=== PATIENT | male | born 1975 | race Caucasian/White ===

== ENCOUNTER 2016-04-22 13:31 | Emergency (ER) | payer OTHER ==
[2016-04-22 13:56] VITALS: TEMP 98.2
[2016-04-22] MEDS ORDERED: RX INFO: IV CONTRAST WAS GIVEN 1 EACH MISC MISCELLANE PRN (14:30)
[2016-04-22] MEDS ORDERED: HYDROmorphone 1 MG/ML 1 ML SYRINGE IVP STA (14:30)
[2016-04-22] MEDS ORDERED: SODIUM CHLORIDE 0.9% 1,000 ML IV STA ×2 (14:30)
[2016-04-22] MEDS ORDERED: ONDANSETRON 4 MG/2 ML VIAL IVP STA (14:30)
[2016-04-22] MEDS ORDERED: FAMOTIDINE 20 MG/2 ML VIAL IV STA (14:31)
--- NOTE | 2016-04-22 14:44 | ED ---
General Adult HPI - General Chief complaint: Abdominal Pain Stated complaint: Nausea/Vomiting Time Seen by Provider: 04/22/16 14:23 Source: patient, RN notes reviewed Mode of arrival: ambulatory Limitations: no limitations - History of Present Illness Initial comments: . Patient is a pleasant 40-year-old male presenting to the emergency Department with abdominal discomfort. Patient had hernia surgery done right around [place] time. Patient for the past week has had abdominal discomfort and nausea with emesis. Limited oral intake. No fevers. Discomfort is mostly near the umbilical hernia as well as somewhat left lower quadrant. Patient has not yet followed up with his surgeon. - Related Data Home Medications Medication Instructions Recorded Confirmed Albuterol Inhaler [Ventolin Hfa 2 puff INHALATION RT-QID PRN 03/06/16 04/22/16 Inhaler] Hydrochlorothiazide [Hydrodiuril] 50 mg PO HS 03/06/16 04/22/16 Lisinopril [Zestril] 20 mg PO HS 03/06/16 04/22/16 Sertraline [Zoloft] 50 mg PO HS 03/06/16 04/22/16 Previous Rx's Medication Instructions Recorded Cephalexin [Keflex] 500 mg PO Q8HR #30 cap 04/22/16 Ondansetron Odt [Zofran Odt] 4 mg PO Q8HR PRN #10 tab 04/22/16 Allergies Allergy/AdvReac Type Severity Reaction Status Date / Time orange juice Allergy Anaphylaxis Verified 04/22/16 14:29 Review of Systems ROS Statement: Those systems with pertinent positive or pertinent negative responses have been documented in the HPI. ROS Other: All systems not noted in ROS Statement are negative. 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 , back pain History of Any Multi-Drug Resistant Organisms: None Reported Past Surgical History: Adenoidectomy, Hernia Repair, Orthopedic Surgery Additional Past Surgical History / Comment(s): 3 lt ear surgeries, nasal reconstruction Lt side of face, Lt foot surgery broken bone Past Anesthesia/Blood Transfusion Reactions: Previous Problems w/ Anesthesia Additional Past Anesthesia/Blood Transfusion Reaction / Comment(s): delay in coming out of anesthesia Past Psychological History: Anxiety, Depression Smoking Status: Never smoker Past Alcohol Use History: Occasional Past Drug Use History: None Reported - Past Family History Mother Family Medical History: Diabetes Mellitus, Hypertension Additional Family Medical History / Comment(s): one kidney removed Father History Unknown: Yes General Exam Limitations: no limitations General appearance: alert, in no apparent distress, obese Head exam: Present: atraumatic Eye exam: Present: normal appearance ENT exam: Present: normal oropharynx Neck exam: Present: normal inspection Respiratory exam: Present: normal lung sounds bilaterally Cardiovascular Exam: Present: regular rate, normal rhythm GI/Abdominal exam: Present: soft, tenderness (Mild to moderate tenderness in the periumbilical and left lower quadrant). Absent: distended, guarding, rebound, rigid Extremities exam: Present: normal inspection. Absent: pedal edema, calf tenderness Neurological exam: Present: alert Psychiatric exam: Present: normal affect, normal mood Skin exam: Absent: rash Course Vital Signs 04/22/16 13:53 Temperature 98.2 F Pulse Rate 78 Respiratory 18 Rate Blood Pressure 143/88 O2 Sat by Pulse 97 Oximetry Medical Decision Making - Medical Decision Making Patient reexamined and requesting discharge. Case was discussed in detail with Dr. gates who did come evaluate the patient in the emergency department and recommends discharge with antibiotics. - Lab Data Result diagrams: 04/22/16 15:45 04/22/16 15:45 Lab Results 04/22/16 04/22/16 04/22/16 Range/Units 15:45 15:45 15:45 WBC 9.8 (3.8-10.6) k/uL RBC 5.21 (4.30-5.90) m/uL Hgb 14.9 (13.0-17.5) gm/dL Hct 46.8 (39.0-53.0) % MCV 89.8 (80.0-100.0) fL MCH 28.5 (25.0-35.0) pg MCHC 31.7 (31.0-37.0) g/dL RDW 13.8 (11.5-15.5) % Plt Count 226 (150-450) k/uL Neutrophils % 79 % Lymphocytes % 13 % Monocytes % 5 % Eosinophils % 1 % Basophils % 0 % Neutrophils # 7.7 (1.3-7.7) k/uL Lymphocytes # 1.3 (1.0-4.8) k/uL Monocytes # 0.5 (0-1.0) k/uL Eosinophils # 0.1 (0-0.7) k/uL Basophils # 0.0 (0-0.2) k/uL PT 11.2 (9.0-12.0) sec INR 1.1 (<1.1) APTT 25.2 (22.0-30.0) sec Sodium 143 (137-145) mmol/L Potassium 4.4 (3.5-5.1) mmol/L Chloride 106 (98-107) mmol/L Carbon Dioxide 24 (22-30) mmol/L Anion Gap 13 mmol/L BUN 17 (9-20) mg/dL Creatinine 0.90 (0.66-1.25) mg/dL Est GFR (MDRD) Af Amer >60 (>60 ml/min/1.73 sqM) Est GFR (MDRD) Non-Af >60 (>60 ml/min/1.73 sqM) Glucose 87 (74-99) mg/dL Calcium 9.5 (8.4-10.2) mg/dL Total Bilirubin 0.7 (0.2-1.3) mg/dL AST 25 (17-59) U/L ALT 54 (21-72) U/L Alkaline Phosphatase 150 H (38-126) U/L Total Protein 8.0 (6.3-8.2) g/dL Albumin 4.5 (3.5-5.0) g/dL Amylase 43 (30-110) U/L Lipase 67 (23-300) U/L Urine Color Urine Appearance (Clear) Urine pH (5.0-8.0) Ur Specific [place] (1.001-1.035) Urine Protein (Negative) Urine Glucose (UA) (Negative) Urine Ketones (Negative) Urine Blood (Negative) Urine Nitrate (Negative) Urine Bilirubin (Negative) Urine Urobilinogen (<2.0) mg/dL Ur Leukocyte Esterase (Negative) 04/22/16 Range/Units 16:20 WBC (3.8-10.6) k/uL RBC (4.30-5.90) m/uL Hgb (13.0-17.5) gm/dL Hct (39.0-53.0) % MCV (80.0-100.0) fL MCH (25.0-35.0) pg MCHC (31.0-37.0) g/dL RDW (11.5-15.5) % Plt Count (150-450) k/uL Neutrophils % % Lymphocytes % % Monocytes % % Eosinophils % % Basophils % % Neutrophils # (1.3-7.7) k/uL Lymphocytes # (1.0-4.8) k/uL Monocytes # (0-1.0) k/uL Eosinophils # (0-0.7) k/uL Basophils # (0-0.2) k/uL PT (9.0-12.0) sec INR (<1.1) APTT (22.0-30.0) sec Sodium (137-145) mmol/L Potassium (3.5-5.1) mmol/L Chloride (98-107) mmol/L Carbon Dioxide (22-30) mmol/L Anion Gap mmol/L BUN (9-20) mg/dL Creatinine (0.66-1.25) mg/dL Est GFR (MDRD) Af Amer (>60 ml/min/1.73 sqM) Est GFR (MDRD) Non-Af (>60 ml/min/1.73 sqM) Glucose (74-99) mg/dL Calcium (8.4-10.2) mg/dL Total Bilirubin (0.2-1.3) mg/dL AST (17-59) U/L ALT (21-72) U/L Alkaline Phosphatase (38-126) U/L Total Protein (6.3-8.2) g/dL Albumin (3.5-5.0) g/dL Amylase (30-110) U/L Lipase (23-300) U/L Urine Color Yellow Urine Appearance Clear (Clear) Urine pH 5.5 (5.0-8.0) Ur Specific [place] 1.046 H (1.001-1.035) Urine Protein Negative (Negative) Urine Glucose (UA) Negative (Negative) Urine Ketones Negative (Negative) Urine Blood Negative (Negative) Urine Nitrate Negative (Negative) Urine Bilirubin Negative (Negative) Urine Urobilinogen <2.0 (<2.0) mg/dL Ur Leukocyte Esterase Negative (Negative) - Radiology Data Radiology results: image reviewed (Computed tomography scan of the abdomen and pelvis shows fluid collection in the umbilical region. There is also some inflammation in this area.) Disposition Clinical Impression: Abdominal pain Disposition: HOME SELF-CARE Condition: Stable Instructions: Abdominal Pain (ED) Additional Instructions: Please call Dr. Levin tomorrow for close follow-up in the next day or 2. Return for increased abdominal pain, not tolerating fluids, fevers, redness, worsening symptoms or other concerns. Prescriptions: Cephalexin [Keflex] 500 mg PO Q8HR #30 cap Ondansetron Odt [Zofran Odt] 4 mg PO Q8HR PRN #10 tab PRN Reason: Nausea Referrals: Pamela Leos MD [Primary Care Provider] - 1-2 days Jesenia Rubin MD [STAFF PHYSICIAN] - 1-2 days
[2016-04-22 16:08] LABS: Basophils % (A) 0 %; CH 28.8; CHCM 32.2; Eosinophils # (A) 0.1 k/uL (0-0.7); Eosinophils % (A) 1 %; HCT 46.8 % (39.0-53.0); HDW 2.66; HGB 14.9 gm/dL (13.0-17.5); Luc # (Auto) 0.08; Luc % (Auto) 1; Lymphocytes # (A) 1.3 k/uL (1.0-4.8); Lymphocytes % (A) 13 %; MCH 28.5 pg (25.0-35.0); MCHC 31.7 g/dL (31.0-37.0); MCV 89.8 fL (80.0-100.0); Mean Platelet Volume 7.6; Monocytes # (A) 0.5 k/uL (0-1.0); Monocytes % (A) 5 %; Neutrophils # (A) 7.7 k/uL (1.3-7.7); Neutrophils % (A) 79 %; RBC 5.21 m/uL (4.30-5.90); RDW 13.8 % (11.5-15.5); WBC 9.8 k/uL (3.8-10.6); WBC (Perox) 9.71
[2016-04-22 16:17] LABS: ALT 54 U/L (21-72); AST 25 U/L (17-59); Alkaline Phosphatase 150 U/L (38-126); Amylase 43 U/L (30-110); Anion Gap 13 mmol/L; Blood Urea Nitrogen 17 mg/dL (9-20); Calcium 9.5 mg/dL (8.4-10.2); Carbon Dioxide 24 mmol/L (22-30); Chloride 106 mmol/L (98-107); Glucose 87 mg/dL (74-99); Non-African American GFR(MDRD) >60 (>60 ml/min/1.73 sqM); Potassium 4.4 mmol/L (3.5-5.1); Sodium 143 mmol/L (137-145); Total Bilirubin 0.7 mg/dL (0.2-1.3)
[2016-04-22 16:19] LABS: INR 1.1 (<1.1); Partial Thromboplastin Time 25.2 sec (22.0-30.0); Prothrombin Time 11.2 sec (9.0-12.0)
[2016-04-22 16:33] LABS: Appearance,Urine Clear (Clear); Bilirubin,Urine Negative (Negative); Glucose,Urine (UA) Negative (Negative); Ketones,Urine Negative (Negative); Leukocyte Esterase,Urine Negative (Negative); Nitrite,Urine Negative (Negative); PH, Urine 5.5 (5.0-8.0); Protein,Urine Negative (Negative); UA Billing (MACRO vs. MICRO) CHEM; Urobilinogen,Urine <2.0 mg/dL (<2.0)
[2016-04-22 16:38] LABS: Specific Gravity,Urine 1.046 (1.001-1.035)
--- NOTE | 2016-04-22 17:00 | CT ---
EXAMINATION TYPE: CT abdomen pelvis w con DATE OF EXAM: 04/22/2016 4:14 PM COMPARISON: NONE HISTORY: 40-year-old male with abdominal pain with nausea and vomiting. TECHNIQUE: Contiguous axial scanning of the abdomen and pelvis following administration of 100 ml Omn ipaque 300 IV contrast. Delayed images through the kidneys and coronal/sagittal reconstructions perf ormed. CT DLP: 4195.60 mGycm Automated exposure control for dose reduction was used. FINDINGS: Heart is normal size without pericardial effusion. Lung bases are clear without pleural effusion. Subcentimeter hypodensity anterior right hepatic lobe axial image [address] characteri zation. Slightly larger 1.5 cm hypodense lesion within the caudate lobe axial image 12 does not appea r to enhance and likely represents a cyst. Portal venous system is patent. No biliary ductal dilatati on. Gallbladder, adrenal glands, kidneys, and pancreas appear within normal limits. Spleen is enlarged measuring 15.6 cm craniocaudal on coronal series. No dilated small bowel, free fluid, or free air. Normal appendix. Mild scattered stool without ayesha lonic inflammatory change seen. No mesenteric or retroperitoneal lymphadenopathy. Bladder is partially distended. Rectum appears normal. No abnormal fluid collection in the pelvis. No nspecific prominent 8 mm external iliac chain lymph nodes. Some bilateral inguinal chain lymph nodes are also borderline enlarged at 1.4 cm. These are probably chronic postinflammatory. There is to be an umbilical hernia which measures 4.1 cm wide by 4.5 cm craniocaudal by 6.8 cm long. The hernia sac is filled with fluid and there is inflammatory fluid and stranding extending into the fat within the intra-abdominal cavity. Bones: There is slight superior acetabular retroversion on both sides which can be seen in the settin g of femoral acetabular impingement syndrome and can be correlated with physical exam testing. No oss eous destructive process. IMPRESSION: 6.8 X 4.5 CM FLUID COLLECTION AT THE UMBILICUS WITHIN THE SUBCUTANEOUS FAT WITH INFLAMMATORY EDEMA AN D FAT STRANDING EXTENDING INTO THE FAT BEHIND THE ABDOMINAL WALL MUSCULATURE. UNCERTAIN IF THIS REPRE SENTS AN ABSCESS AT THE UMBILICUS, STRANGULATED AND INFLAMED UMBILICAL HERNIA, OR A COMPLICATED UMBIL ICAL-URACHAL SINUS. CLINICAL CORRELATION RECOMMENDED.
[2016-04-22 18:12] VITALS: BP 160/83; PULSE 80; RESP 16
--- NOTE | 2016-04-22 19:07 | P.GSCN ---
History of Present Illness Consult date: 04/22/16 Reason for Consult: Abdominal discomfort History of present illness: Patient is 40-year-old male who presents with abdominal discomfort. The patient has had a hernia repair done approximately 2 weeks ago from that standpoint he is doing very well. He says he is having some nausea but no other complaints. Pain is moderate to severe at the site of the hernia repair. There is no fever no chills no discharge. Is otherwise ambulating well. Review of Systems - Constitutional Reports anorexia, Denies fever, Denies weight loss - Gastrointestinal Gastrointestinal Comment(s): Patient have some nausea and is unable to tolerate food at this time. He is some discomfort from his abdomen. 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 , back pain History of Any Multi-Drug Resistant Organisms: None Reported Past Surgical History: Adenoidectomy, Hernia Repair, Orthopedic Surgery Additional Past Surgical History / Comment(s): 3 lt ear surgeries, nasal reconstruction Lt side of face, Lt foot surgery broken bone Past Anesthesia/Blood Transfusion Reactions: Previous Problems w/ Anesthesia Additional Past Anesthesia/Blood Transfusion Reaction / Comm: delay in coming out of anesthesia Past Psychological History: Anxiety, Depression Smoking Status: Never smoker Past Alcohol Use History: Occasional Past Drug Use History: None Reported - Past Family History Mother Family Medical History: Diabetes Mellitus, Hypertension Additional Family Medical History / Comment(s): one kidney removed Father History Unknown: Yes Medications and Allergies Home Medications Medication Instructions Recorded Confirmed Type Albuterol Inhaler [Ventolin Hfa 2 puff INHALATION RT-QID PRN 03/06/16 04/22/16 History Inhaler] Hydrochlorothiazide [Hydrodiuril] 50 mg PO HS 03/06/16 04/22/16 History Lisinopril [Zestril] 20 mg PO HS 03/06/16 04/22/16 History Sertraline [Zoloft] 50 mg PO HS 03/06/16 04/22/16 History Allergies Allergy/AdvReac Type Severity Reaction Status Date / Time orange juice Allergy Anaphylaxis Verified 04/22/16 14:29 Surgical - Exam Vital Signs Temp Pulse Resp BP Pulse Ox 98.2 F 78 18 143/88 97 04/22/16 13:53 04/22/16 13:53 04/22/16 13:53 04/22/16 13:53 04/22/16 13:53 - General no distress, obese - Eyes PERRL, normal ocular movement - ENT normal pinna, normal nares - Respiratory normal expansion, normal respiratory effort - Cardiovascular Rhythm: regular - Abdomen Patient's cystlike are well healed. On the patient has some tenderness around the bellybutton site. There is no erythema no discharge. There is no warmth. Most likely the fluctuations from the seroma. Abdomen: soft Results - Labs 04/22/16 15:45 04/22/16 15:45 Abnormal Lab Results - Last 24 Hours (Table) 04/22/16 04/22/16 Range/Units 15:45 16:20 Alkaline Phosphatase 150 H (38-126) U/L Ur Specific [place] 1.046 H (1.001-1.035) Diabetes panel 04/22/16 Range/Units 15:45 Sodium 143 (137-145) mmol/L Potassium 4.4 (3.5-5.1) mmol/L Chloride 106 (98-107) mmol/L Carbon Dioxide 24 (22-30) mmol/L BUN 17 (9-20) mg/dL Creatinine 0.90 (0.66-1.25) mg/dL Glucose 87 (74-99) mg/dL Calcium 9.5 (8.4-10.2) mg/dL AST 25 (17-59) U/L ALT 54 (21-72) U/L Alkaline Phosphatase 150 H (38-126) U/L Total Protein 8.0 (6.3-8.2) g/dL Albumin 4.5 (3.5-5.0) g/dL Calcium panel 04/22/16 Range/Units 15:45 Calcium 9.5 (8.4-10.2) mg/dL Albumin 4.5 (3.5-5.0) g/dL Pituitary panel 04/22/16 Range/Units 15:45 Sodium 143 (137-145) mmol/L Potassium 4.4 (3.5-5.1) mmol/L Chloride 106 (98-107) mmol/L Carbon Dioxide 24 (22-30) mmol/L BUN 17 (9-20) mg/dL Creatinine 0.90 (0.66-1.25) mg/dL Glucose 87 (74-99) mg/dL Calcium 9.5 (8.4-10.2) mg/dL Adrenal panel 04/22/16 Range/Units 15:45 Sodium 143 (137-145) mmol/L Potassium 4.4 (3.5-5.1) mmol/L Chloride 106 (98-107) mmol/L Carbon Dioxide 24 (22-30) mmol/L BUN 17 (9-20) mg/dL Creatinine 0.90 (0.66-1.25) mg/dL Glucose 87 (74-99) mg/dL Calcium 9.5 (8.4-10.2) mg/dL Total Bilirubin 0.7 (0.2-1.3) mg/dL AST 25 (17-59) U/L ALT 54 (21-72) U/L Alkaline Phosphatase 150 H (38-126) U/L Total Protein 8.0 (6.3-8.2) g/dL Albumin 4.5 (3.5-5.0) g/dL - Imaging Additional studies: Computed tomography scan was reviewed by me. The mesh is intact. This fluid over the mesh extending the subcutaneous plane. This probably a small seroma. Assessment and Plan (1) Abdominal pain Narrative/Plan: The patient presents with his small abdominal pain. The pain is probably related to the fluid and subcutis tissue which is postoperative in nature. At this time does not look actively infected. His white count is within normal limits. There is no left shift. Fever no chills. And recommendations and the patient home and follow up as an outpatient with antibiotic coverage as prophylaxis. The computed tomography scan report was reviewed as stated this is expected postsurgical changes. Status: Acute
== END 2016-04-22 18:11 | disposition home or self-care (01) ==
LOC: EC 13:31
DX: R10.33 Periumbilical pain (principal); R10.32 Left lower quadrant pain; R11.2 Nausea with vomiting, unspecified; Z98.890 Other specified postprocedural states; I10 Essential (primary) hypertension; F32.9 Major depressive disorder, single episode, unspecified; F41.9 Anxiety disorder, unspecified; Z79.899 Other long term (current) drug therapy; R63.0 Anorexia
CPT/HCPCS: 99284; 96374; 96375 ×2; 96361 ×2; 36415; 80053; 82150; 83690; 85025; 85610; 85730; 81003; 74177; J2405; J1170; Q9967

== ENCOUNTER 2018-03-15 17:31 | Observation (INO) | payer OTHER ==
[2018-03-15] MEDS ORDERED: NITROGLYCERIN OINT 1 INCH/GM PACKET TOPICAL STA (17:56)
[2018-03-15] MEDS ORDERED: ASPIRIN 81 MG PO STA (17:56)
[2018-03-15] MEDS ORDERED: NITROGLYCERIN SL TABS 0.4 MG TAB SUBLINGUAL STA ×2 (17:56)
--- NOTE | 2018-03-15 17:59 | ED ---
General Adult HPI - General Chief complaint: Chest Pain Stated complaint: Chest pain Time Seen by Provider: 03/15/18 17:35 Source: patient, RN notes reviewed Mode of arrival: ambulatory Limitations: no limitations - History of Present Illness Initial comments: This is a 42-year-old male who presents emergency Department with a past history of morbid obesity hypertension high cholesterol and congestive heart failure. Patient states about 45 minutes prior to arrival he started having chest pain over the pain radiated down his arm he describes the pain is pressure. Patient states he also was very short of breath. Patient denies any diaphoretic episodes. Patient denies any nausea. Patient denies any recent fever chills or cough. Patient denies any smoking history. Patient denies any injury or trauma. Patient denies abdominal pain patient denies any vomiting or diarrhea. Patient denies any lightheadedness dizziness or near syncopal episode. - Related Data Home Medications Medication Instructions Recorded Confirmed Aspirin EC [Ecotrin Low Dose] 81 mg PO DAILY 03/15/18 03/15/18 Atorvastatin [Lipitor] 40 mg PO HS 03/15/18 03/15/18 Clopidogrel [Plavix] 75 mg PO DAILY 03/15/18 03/15/18 Furosemide [Lasix] 20 mg PO BID 03/15/18 03/15/18 Furosemide [Lasix] 40 mg PO BID 03/15/18 03/15/18 Lisinopril 40 mg PO DAILY 03/15/18 03/15/18 Metoprolol Succinate (ER) [Toprol 100 mg PO DAILY 03/15/18 03/15/18 Xl] Omeprazole 20 mg PO BID 03/15/18 03/15/18 Potassium Chloride ER [K-Dur 20] 20 meq PO DAILY 03/15/18 03/15/18 Pregabalin [Lyrica] 75 mg PO DAILY 03/15/18 03/15/18 Topiramate [Topamax] 100 mg PO HS 03/15/18 03/15/18 Venlafaxine HCl ER [Effexor Xr] 150 mg PO DAILY 03/15/18 03/15/18 hydrALAZINE HCL 37.5 mg PO BID 03/15/18 03/15/18 Allergies Allergy/AdvReac Type Severity Reaction Status Date / Time orange juice Allergy Anaphylaxis Verified 03/15/18 18:20 Review of Systems ROS Statement: Those systems with pertinent positive or pertinent negative responses have been documented in the HPI. ROS Other: All systems not noted in ROS Statement are negative. Past Medical History Past Medical History: Chest Pain / Angina, Hypertension Additional Past Medical History / Comment(s): tubes in ears, cyst on hypothalmus , back pain History of Any Multi-Drug Resistant Organisms: None Reported Past Surgical History: Adenoidectomy, Hernia Repair, Orthopedic Surgery Additional Past Surgical History / Comment(s): 3 lt ear surgeries, nasal reconstruction Lt side of face, Lt foot surgery broken bone Past Anesthesia/Blood Transfusion Reactions: Previous Problems w/ Anesthesia Additional Past Anesthesia/Blood Transfusion Reaction / Comment(s): delay in coming out of anesthesia Past Psychological History: Anxiety, Depression Smoking Status: Never smoker Past Alcohol Use History: Occasional Past Drug Use History: None Reported - Past Family History Mother Family Medical History: Diabetes Mellitus, Hypertension Additional Family Medical History / Comment(s): one kidney removed Father History Unknown: Yes General Exam - General Exam Comments Initial Comments: GENERAL: Patient is well-developed and well-nourished. Patient is nontoxic and well- hydrated and is in mild distress. ENT: Neck is soft and supple. No significant lymphadenopathy is noted. Oropharynx is clear. Moist mucous membranes. Neck has full range of motion without eliciting any pain. EYES: The sclera were anicteric and conjunctiva were pink and moist. Extraocular movements were intact and pupils were equal round and reactive to light. Eyelids were unremarkable. PULMONARY: Unlabored respirations. Good breath sounds bilaterally. No audible rales rhonchi or wheezing was noted. CARDIOVASCULAR: There is a regular rate and rhythm without any murmurs gallops or rubs. ABDOMEN: Soft and nontender with normal bowel sounds. No palpable organomegaly was noted. There is no palpable pulsatile mass. SKIN: Skin is clear with no lesions or rashes and otherwise unremarkable. NEUROLOGIC: Patient is alert and oriented x3. Cranial nerves II through XII are grossly intact. Motor and sensory are also intact. Normal speech, volume and content. Symmetrical smile. MUSCULOSKELETAL: Normal extremities with adequate strength and full range of motion. Scant edema bilateral legs LYMPHATICS: No significant lymphadenopathy is noted PSYCHIATRIC: Normal psychiatric evaluation. Limitations: no limitations Course Vital Signs 03/15/18 03/15/18 03/15/18 17:35 18:09 18:10 Temperature 98.3 F Pulse Rate 89 90 91 Respiratory 22 20 20 Rate Blood Pressure 156/94 O2 Sat by Pulse 97 95 94 L Oximetry 03/15/18 03/15/18 03/15/18 18:20 18:30 18:40 Temperature Pulse Rate 92 98 Respiratory 20 20 18 Rate Blood Pressure 138/80 111/71 97/63 O2 Sat by Pulse 92 L Oximetry 03/15/18 19:31 Temperature Pulse Rate 87 Respiratory 18 Rate Blood Pressure 123/68 O2 Sat by Pulse 96 Oximetry Medical Decision Making - Medical Decision Making EKG shows normal sinus rhythm at 81 bpm ID interval 242 QRS is 90 QT interval 392 QTC is 455. Patient's EKG shows no ST segment elevation or depression or T wave abnormalities are noted. Chest x-ray shows no acute abnormality. Patient states nitroglycerin did help his pain. I started the patient heparin for unstable angina. I spoke with Dr. Ayon and he agreed to admit the patient admitted the patient I wrote admitting orders. I consult to cardiology. I continue the heparin Nitropaste and aspirin on the floor. - Lab Data Result diagrams: 03/15/18 18:32 03/15/18 18:32 Lab Results 03/15/18 03/15/18 03/15/18 Range/Units 18:32 18:32 18:32 WBC 6.5 (3.8-10.6) k/uL RBC 4.68 (4.30-5.90) m/uL Hgb 13.7 (13.0-17.5) gm/dL Hct 39.9 (39.0-53.0) % MCV 85.3 (80.0-100.0) fL MCH 29.2 (25.0-35.0) pg MCHC 34.2 (31.0-37.0) g/dL RDW 14.1 (11.5-15.5) % Plt Count 227 (150-450) k/uL Neutrophils % 73 % Lymphocytes % 17 % Monocytes % 6 % Eosinophils % 4 % Basophils % 0 % Neutrophils # 4.7 (1.3-7.7) k/uL Lymphocytes # 1.1 (1.0-4.8) k/uL Monocytes # 0.4 (0-1.0) k/uL Eosinophils # 0.3 (0-0.7) k/uL Basophils # 0.0 (0-0.2) k/uL PT (9.0-12.0) sec INR (<1.2) APTT (22.0-30.0) sec Sodium 139 (137-145) mmol/L Potassium 4.4 (3.5-5.1) mmol/L Chloride 107 (98-107) mmol/L Carbon Dioxide 25 (22-30) mmol/L Anion Gap 7 mmol/L BUN 19 (9-20) mg/dL Creatinine 1.05 (0.66-1.25) mg/dL Est GFR (CKD-EPI)AfAm >90 (>60 ml/min/1.73 sqM) Est GFR (CKD-EPI)NonAf 88 (>60 ml/min/1.73 sqM) Glucose 113 H (74-99) mg/dL Calcium 9.3 (8.4-10.2) mg/dL Magnesium 2.1 (1.6-2.3) mg/dL Total Bilirubin 0.4 (0.2-1.3) mg/dL AST 24 (17-59) U/L ALT 37 (21-72) U/L Alkaline Phosphatase 105 (38-126) U/L Total Creatine Kinase 86 (55-170) U/L CK-MB (CK-2) 0.4 (0.0-2.4) ng/mL CK-MB (CK-2) Rel Index 0.5 Troponin I <0.012 (0.000-0.034) ng/mL Total Protein 7.0 (6.3-8.2) g/dL Albumin 3.6 (3.5-5.0) g/dL 03/15/18 Range/Units 18:32 WBC (3.8-10.6) k/uL RBC (4.30-5.90) m/uL Hgb (13.0-17.5) gm/dL Hct (39.0-53.0) % MCV (80.0-100.0) fL MCH (25.0-35.0) pg MCHC (31.0-37.0) g/dL RDW (11.5-15.5) % Plt Count (150-450) k/uL Neutrophils % % Lymphocytes % % Monocytes % % Eosinophils % % Basophils % % Neutrophils # (1.3-7.7) k/uL Lymphocytes # (1.0-4.8) k/uL Monocytes # (0-1.0) k/uL Eosinophils # (0-0.7) k/uL Basophils # (0-0.2) k/uL PT 10.2 (9.0-12.0) sec INR 1.0 (<1.2) APTT 19.6 L (22.0-30.0) sec Sodium (137-145) mmol/L Potassium (3.5-5.1) mmol/L Chloride (98-107) mmol/L Carbon Dioxide (22-30) mmol/L Anion Gap mmol/L BUN (9-20) mg/dL Creatinine (0.66-1.25) mg/dL Est GFR (CKD-EPI)AfAm (>60 ml/min/1.73 sqM) Est GFR (CKD-EPI)NonAf (>60 ml/min/1.73 sqM) Glucose (74-99) mg/dL Calcium (8.4-10.2) mg/dL Magnesium (1.6-2.3) mg/dL Total Bilirubin (0.2-1.3) mg/dL AST (17-59) U/L ALT (21-72) U/L Alkaline Phosphatase (38-126) U/L Total Creatine Kinase (55-170) U/L CK-MB (CK-2) (0.0-2.4) ng/mL CK-MB (CK-2) Rel Index Troponin I (0.000-0.034) ng/mL Total Protein (6.3-8.2) g/dL Albumin (3.5-5.0) g/dL Critical Care Time Critical Care Time: Yes Total Critical Care Time: 35 Disposition Clinical Impression: Unstable angina pectoris Disposition: ADMITTED IP TO THIS HOSP Referrals: Pamela Leos MD [Primary Care Provider] - 1-2 days Time of Disposition: 19:39
[2018-03-15 18:46] LABS: Basophils % (A) 0 %; Eosinophils # (A) 0.3 k/uL (0-0.7); Eosinophils % (A) 4 %; HCT 39.9 % (39.0-53.0); HGB 13.7 gm/dL (13.0-17.5); Lymphocytes # (A) 1.1 k/uL (1.0-4.8); Lymphocytes % (A) 17 %; MCH 29.2 pg (25.0-35.0); MCHC 34.2 g/dL (31.0-37.0); MCV 85.3 fL (80.0-100.0); Mean Platelet Volume 6.9; Monocytes # (A) 0.4 k/uL (0-1.0); Monocytes % (A) 6 %; Neutrophils # (A) 4.7 k/uL (1.3-7.7); Neutrophils % (A) 73 %; Platelet Count 227 k/uL (150-450); RBC 4.68 m/uL (4.30-5.90); RDW 14.1 % (11.5-15.5); WBC 6.5 k/uL (3.8-10.6)
[2018-03-15 18:55] LABS: ALT 37 U/L (21-72); AST 24 U/L (17-59); Albumin 3.6 g/dL (3.5-5.0); Alkaline Phosphatase 105 U/L (38-126); Anion Gap 7 mmol/L; Blood Urea Nitrogen 19 mg/dL (9-20); Calcium 9.3 mg/dL (8.4-10.2); Carbon Dioxide 25 mmol/L (22-30); Chloride 107 mmol/L (98-107); Glucose 113 mg/dL (74-99); Magnesium 2.1 mg/dL (1.6-2.3); Potassium 4.4 mmol/L (3.5-5.1); Sodium 139 mmol/L (137-145); Total Bilirubin 0.4 mg/dL (0.2-1.3)
[2018-03-15 18:56] LABS: Prothrombin Time 10.2 sec (9.0-12.0)
[2018-03-15 19:12] LABS: Creatine Kinase 86 U/L (55-170)
[2018-03-15 19:24] LABS: Creatine Kinase MB 0.4 ng/mL (0.0-2.4); Troponin I <0.012 ng/mL (0.000-0.034)
[2018-03-15 19:30] LABS: Partial Thromboplastin Time 19.6 sec (22.0-30.0)
[2018-03-15] MEDS ORDERED: HEPARIN SODIUM,PORCINE 5,000 UNIT/ML 1 ML VIAL IV ONE (19:37)
--- NOTE | 2018-03-15 19:40 | XR ---
EXAMINATION TYPE: XR chest 2V DATE OF EXAM: 03/15/2018 COMPARISON: 04/04/2016 HISTORY: Chest pain TECHNIQUE: Frontal and lateral views of the chest are obtained. FINDINGS: There is no heart failure nor confluent pneumonic infiltrate. Costophrenic angles are kendrick r. There are chest leads. Bony thorax is intact. IMPRESSION: No active cardiopulmonary disease. Normal heart. No change.
[2018-03-15] MEDS ORDERED: HEPARIN SOD,PORK IN 0.45% NACL 25,000 UNIT in 0.45% NACL 1 500ML.BAG IV SCH (19:45)
[2018-03-15] MEDS ORDERED: NITROGLYCERIN SL TABS 0.4 MG TAB SUBLINGUAL PRN (19:56)
[2018-03-15] MEDS ORDERED: TOPIRAMATE 100 MG TAB PO SCH (23:00)
[2018-03-15] MEDS ORDERED: ATORVASTATIN 40 MG TAB PO SCH (23:00)
[2018-03-15] MEDS ORDERED: FUROSEMIDE 40 MG TAB PO SCH (23:00)
[2018-03-16] MEDS: hydrALAZINE HCL 25 MG TAB PO SCH ×2 (00:15→12:27)
[2018-03-16] MEDS: FUROSEMIDE 20 MG TAB PO SCH ×2 (00:16→12:27)
[2018-03-16] MEDS: HYDROcodone/APAP 5-325MG 1 EACH TAB PO PRN ×2 (00:16→08:30)
[2018-03-16] MEDS: NITROGLYCERIN OINT 1 INCH/GM PACKET TOPICAL SCH ×2 (00:22→04:54)
[2018-03-16] MEDS: PANTOPRAZOLE 40 MG TABLET PO SCH ×2 (00:34→12:27)
[2018-03-16 03:12] LABS: Creatine Kinase 78 U/L (55-170)
[2018-03-16 03:26] LABS: Creatine Kinase MB 0.3 ng/mL (0.0-2.4); Troponin I <0.012 ng/mL (0.000-0.034)
[2018-03-16 07:56] VITALS: RESP 18
[2018-03-16 08:23] LABS: Creatine Kinase 70 U/L (55-170)
[2018-03-16 08:26] LABS: Cholesterol 156 mg/dL (<200); HDL Cholesterol 40 mg/dL (40-60); LDL Cholesterol,Calculated 94 mg/dL (0-99); Triglycerides 111 mg/dL (<150)
[2018-03-16 08:36] LABS: Creatine Kinase MB 0.3 ng/mL (0.0-2.4); Troponin I <0.012 ng/mL (0.000-0.034)
[2018-03-16] MEDS ORDERED: ASPIRIN 325 MG TAB PO SCH (09:00)
[2018-03-16] MEDS ORDERED: ASPIRIN 81 MG PO SCH ×2 (09:00→11:00)
[2018-03-16] MEDS ORDERED: CLOPIDOGREL 75 MG TAB PO SCH (11:00)
[2018-03-16] MEDS ORDERED: METOPROLOL SUCCINATE (ER) 100 MG TAB.ER.24H PO SCH (11:00)
[2018-03-16] MEDS ORDERED: LISINOPRIL 20 MG TAB PO SCH (11:00)
[2018-03-16] MEDS ORDERED: POTASSIUM CHLORIDE ER 20 MEQ TAB.ER PO SCH (11:00)
[2018-03-16] MEDS ORDERED: PREGABALIN 75 MG CAP PO SCH (11:45)
[2018-03-16] MEDS ORDERED: VENLAFAXINE HCL ER 150 MG CAP PO SCH (11:45)
[2018-03-16 12:06] VITALS: BP 118/73; PULSE 79; TEMP 98.3
--- NOTE | 2018-03-16 13:07 | P.HPIM ---
History of Present Illness 42-year-old morbidly obese gentleman with the history of hypertension came in with complaints of on and off nonexertional 8/10 chest pain she like sensation not related to food and is also short of breath always which appears to be secondary to his restrictive lung disease denied any cough runny nose denied any diaphoresis chest pain nonpleuritic in nature. Patient chest pain is reproducible. Patient has a recent stress test and cardiac catheterization insulin. We're obtaining medical records from there. It appears these tests were negative. Patient was admitted to rule out a concurrent syndromes troponins and EKG did not show any significant abnormality was evaluated by cardiology. Once we get the medical records from [facility] of they're within normal limits patient will be discharged home appears to have musculoskeletal chest pain patient was suggested to use nonsteroidal anti- intermittent recent if he has acid reflux patient will use Zantac over-the- counter. Patient does not have any heart failure does have bilateral lower limb pedal edema secondary to chronic venous insufficiency from morbid obesity. Patient is working on losing weight and bariatric surgery as an outpatient.. Patient denied any fever chills cough runny nose. Review of Systems REVIEW OF SYSTEMS: CONSTITUTIONAL: No fever, no malaise, no fatigue. HEENT: No recent visual problems or hearing problems. Denied any sore throat. CARDIOVASCULAR: No orthopnea, PND, no palpitations, no syncope. PULMONARY: no cough, no hemoptysis. GASTROINTESTINAL: No diarrhea, no nausea, no vomiting, no abdominal pain. Normoactive bowel sounds. NEUROLOGICAL: No headaches, no weakness, no numbness. HEMATOLOGICAL: Denies any bleeding or petechiae. GENITOURINARY: Denies any burning micturition, frequency, or urgency. MUSCULOSKELETAL/RHEUMATOLOGICAL: Denies any joint pain, swelling, or any muscle pain. ENDOCRINE: Denies any polyuria or polydipsia. The rest of the 14-point review of systems is negative. Past Medical History Past Medical History: Chest Pain / Angina, Heart Failure, CVA/TIA, GERD/Reflux, Hyperlipidemia, Hypertension, Osteoarthritis (OA) Additional Past Medical History / Comment(s): tubes in ears, cyst on hypothalmus ,x3 concussions(all d/t working with animals. 0 back pain, thyroid nodule-dr watching it." in october 2017 -stroke affected dominant lt side -pt stated has some mild weakness to lt leg/arm History of Any Multi-Drug Resistant Organisms: None Reported Past Surgical History: Adenoidectomy, Hernia Repair, Orthopedic Surgery Additional Past Surgical History / Comment(s): 4 lt ear surgeries, nasal reconstruction Lt side of face, Lt foot surgery broken bone Past Anesthesia/Blood Transfusion Reactions: Previous Problems w/ Anesthesia Additional Past Anesthesia/Blood Transfusion Reaction / Comment(s): delay in coming out of anesthesia Smoking Status: Never smoker - Past Family History Mother Family Medical History: Diabetes Mellitus, Hypertension Additional Family Medical History / Comment(s): one kidney removed Father History Unknown: Yes Medications and Allergies Home Medications Medication Instructions Recorded Confirmed Type Aspirin EC [Ecotrin Low Dose] 81 mg PO DAILY 03/15/18 03/15/18 History Atorvastatin [Lipitor] 40 mg PO HS 03/15/18 03/15/18 History Clopidogrel [Plavix] 75 mg PO DAILY 03/15/18 03/15/18 History Furosemide [Lasix] 20 mg PO BID 03/15/18 03/15/18 History Furosemide [Lasix] 40 mg PO BID 03/15/18 03/15/18 History Lisinopril 40 mg PO DAILY 03/15/18 03/15/18 History Metoprolol Succinate (ER) [Toprol 100 mg PO DAILY 03/15/18 03/15/18 History Xl] Omeprazole 20 mg PO BID 03/15/18 03/15/18 History Potassium Chloride ER [K-Dur 20] 20 meq PO DAILY 03/15/18 03/15/18 History Pregabalin [Lyrica] 75 mg PO DAILY 03/15/18 03/15/18 History Topiramate [Topamax] 100 mg PO HS 03/15/18 03/15/18 History Venlafaxine HCl ER [Effexor Xr] 150 mg PO DAILY 03/15/18 03/15/18 History hydrALAZINE HCL 37.5 mg PO BID 03/15/18 03/15/18 History Allergies Allergy/AdvReac Type Severity Reaction Status Date / Time orange juice Allergy Anaphylaxis Verified 03/15/18 18:20 Physical Exam Vitals: Vital Signs Temp Pulse Pulse Resp BP BP Pulse Ox 03/16/18 12:00 98.3 F 79 18 118/73 94 L 03/16/18 07:35 98.2 F 75 18 131/68 03/16/18 04:00 98.5 F 74 16 147/79 94 L 03/16/18 03:21 20 03/16/18 00:00 98.8 F 81 20 148/73 95 03/15/18 23:07 18 03/15/18 21:37 99.0 F 84 18 167/79 95 03/15/18 21:09 98.9 F 84 20 112/70 95 03/15/18 20:00 85 16 133/78 96 03/15/18 19:31 87 18 123/68 96 03/15/18 18:40 18 97/63 03/15/18 18:30 98 20 111/71 03/15/18 18:20 92 20 138/80 92 L 03/15/18 18:10 91 20 94 L 03/15/18 18:09 90 20 95 03/15/18 17:35 98.3 F 89 22 156/94 97 Intake and Output 03/15/18 03/16/18 03/16/18 22:59 06:59 14:59 Intake Total 123.79 200 Balance 123.79 200 Intake: Intake, IV Titration 123.79 Amount Heparin Sod,Pork in 0.45% 123.79 NaCl 25,000 unit In 0.45 % NaCl 1 500ml.bag @ 4.96 UNITS/KG/HR 20.02 mls/hr IV .Q24H [facility] Rx#: [id number] Other 200 Other: Voiding Method Toilet Toilet # Voids 1 2 Weight 201.849 kg 202.3 kg PHYSICAL EXAMINATION: GENERAL: The patient is alert and oriented x3, not in any acute distress. [place] obese HEENT: Pupils are round and equally reacting to light. EOMI. No scleral icterus. No conjunctival pallor. Normocephalic, atraumatic. No pharyngeal erythema. No thyromegaly. CARDIOVASCULAR: S1 and S2 present. No murmurs, rubs, or gallops. PULMONARY: Chest is clear to auscultation, no wheezing or crackles. ABDOMEN: Soft, nontender, nondistended, normoactive bowel sounds. No palpable organomegaly. MUSCULOSKELETAL: No joint swelling or deformity. EXTREMITIES: No cyanosis, clubbing, does have mild pedal edema NEUROLOGICAL: Gross neurological examination did not reveal any focal deficits. SKIN: No rashes. Results CBC & Chem 7: 11/28/18 18:32 03/15/18 18:32 Labs: Abnormal Lab Results - Last 24 Hours (Table) 03/15/18 03/15/18 03/16/18 Range/Units 18:32 18:32 07:26 APTT 19.6 L 30.1 H (22.0-30.0) sec Glucose 113 H (74-99) mg/dL Thrombosis Risk Factor Assmnt - Choose All That Apply Each Factor Represents 1 point: Age 41-60 years, Obesity (BMI >25) Thrombosis Risk Factor Assessment Total Risk Factor Score: 2 Thrombosis Risk Factor Assessment Level: Low Risk Assessment and Plan Plan: Chest pain: Rule out acute coronary syndromes and unstable angina patient appears to have musculoskeletal chest pain further workup and discharge as mentioned above was evaluated by cardiology -Chronic shortness of breath secondary to generalized deconditioning from morbid obesity and restrictive lung disease, patient will benefit from weight loss surgery -Bilateral pedal edema: Due to heart failure but secondary to chronic venous insufficiency from morbid obesity patient will be continued on his Lasix dosing at home -Gastroesophageal reflux disease -hyperlipidemia -hypertension -CVA TIA in the past -Morbid obesity possible restrictive lung disease and possible sleep apnea Patient was suggested to use nonsteroidal anti-intermittent medications for his musculoskeletal chest pain if cleared by cardiology patient will be discharged to follow up with primary care patient in 3-7 days dietary counseling was provided.
--- NOTE | 2018-03-16 13:07 | P.DS ---
Providers Date of admission: 03/15/18 19:56 Attending physician: Lacy Lin Consults: 03/15/18 19:56 Consult Physician Urgent Consulting Provider: [facility] Consult Reason/Comments: Unstable angina Do you want consulting provider notified?: Yes Primary care physician: Pamela Leos [facility] Course: Please refer to my HPI Plan - Discharge Summary Discharge Rx Participant: Yes New Discharge Prescriptions: No Action Venlafaxine HCl ER [Effexor Xr] 150 mg PO DAILY Potassium Chloride ER [K-Dur 20] 20 meq PO DAILY Lisinopril 40 mg PO DAILY Clopidogrel [Plavix] 75 mg PO DAILY hydrALAZINE HCL 37.5 mg PO BID Topiramate [Topamax] 100 mg PO HS Metoprolol Succinate (ER) [Toprol Xl] 100 mg PO DAILY Atorvastatin [Lipitor] 40 mg PO HS Furosemide [Lasix] 20 mg PO BID Furosemide [Lasix] 40 mg PO BID Aspirin EC [Ecotrin Low Dose] 81 mg PO DAILY Pregabalin [Lyrica] 75 mg PO DAILY Omeprazole 20 mg PO BID Discharge Medication List Aspirin EC [Ecotrin Low Dose] 81 mg PO DAILY 03/15/18 [History] Atorvastatin [Lipitor] 40 mg PO HS 03/15/18 [History] Clopidogrel [Plavix] 75 mg PO DAILY 03/15/18 [History] Furosemide [Lasix] 20 mg PO BID 03/15/18 [History] Furosemide [Lasix] 40 mg PO BID 03/15/18 [History] Lisinopril 40 mg PO DAILY 03/15/18 [History] Metoprolol Succinate (ER) [Toprol Xl] 100 mg PO DAILY 03/15/18 [History] Omeprazole 20 mg PO BID 03/15/18 [History] Potassium Chloride ER [K-Dur 20] 20 meq PO DAILY 03/15/18 [History] Pregabalin [Lyrica] 75 mg PO DAILY 03/15/18 [History] Topiramate [Topamax] 100 mg PO HS 03/15/18 [History] Venlafaxine HCl ER [Effexor Xr] 150 mg PO DAILY 03/15/18 [History] hydrALAZINE HCL 37.5 mg PO BID 03/15/18 [History] Follow up Appointment(s)/Referral(s): Pamela Leos MD [Primary Care Provider] - 3 Days Discharge Disposition: HOME SELF-CARE
--- NOTE | 2018-03-16 14:17 | P.CRDCN ---
History of Present Illness History of present illness: This is a pleasant 42-year-old male past medical history significant for non-ischemic cardiomyopathy, chronic systolic heart failure, dyslipidemia, hypertension, morbid obestiy and history of CVA in the past. He follows with Dr. Wheat in [place] for cardiology. We have requested records from his office and reviewed. He states yesterday while he was driving he felt an acute pressure in his chest in the left precordial region with radiation down the left arm with increased shortness of breath from his baseline. He denies dizziness, palpitations, nausea, vomiting or diaphoresis. His symptoms persisted for approximately 45 minutes prior to coming in the ultimately seemed to subside on its own. He denies any further symptoms of chest pain since admission. He underwent a right heart cath 07/2017 revealing atrial pressure of 15 with a wedge of 22. Nuclear stress test done 11/2017 negative for cardiac ischemia. Left heart cath 02/2017 is negative for stenosis revealing normal coronary arteries. EKG reveals sinus mechanism with no acute ST or T wave abnormalities noted. Chest x-ray is negative for acute cardiopulmonary process. Laboratory data reviewed, hemoglobin 13.7, platelets 227, sodium 139, potassium 4.4, creatinine 1.05, magnesium 2.1, cardiac enzymes negative 3, NT proBNP 34, LDL 94 and HDL 40. Current cardiac medications include aspirin 81 mg daily, Lasix 60 mg twice a day , lisinopril 40 mg daily, hydralazine 37.5 mg twice a day, Toprol 100 mg daily, atorvastatin 40 mg daily and he also takes Plavix secondary to CVA. At the time of my exam: CONSTITUTIONAL: Denies fever. Denies chills. EYES: Denies blurred vision. Denies vision changes. Denies eye pain. EARS, NOSE, MOUTH & THROAT: Denies headache. Denies sore throat. Denies ear pain. CARDIOVASCULAR: Denies chest pain. Denies shortness of breath. Denies orthopnea. Denies PND. Denies palpitations. RESPIRATORY: Denies cough. GASTROINTESTINAL: Denies abdominal pain. Denies diarrhea. Denies constipation. Denies nausea. Denies vomiting. MUSCULOSKELETAL: Denies myalgias. INTEGUMENTARY: Denies pruitis. Denies rash. NEUROLOGIC: Denies numbness. Denies tingling. Denies weakness. PSYCHIATRIC: Denies anxiety. Denies depression. ENDOCRINE: Denies fatigue. Denies weight change. Denies polydipsia. Denies polyurina. GENITOURINARY: Denies burning, hematuria or urgency with micturation. HEMATOLOGIC: Denies history of anemia. Denies bleeding. Blood pressure 118/73 heart rate 79 afebrile maintaining oxygen saturation on room air. GENERAL: This is a 42-year-old male in no apparent distress at the time of my examination. Morbidly obese. HEENT: Head is atraumatic, normocephalic. Pupils are equal, round. Sclerae anicteric. Conjunctivae are clear. Mucous membranes of the mouth are moist. Neck is supple. There is no jugular venous distention. No carotid bruit is heard. LUNGS: Clear to auscultation no wheezes, rales or rhonchi. No chest wall tenderness is noted on palpation or with deep breathing. HEART: Regular rate and rhythm without murmurs, rubs or gallops. S1 and S2 heard. ABDOMEN: Soft, nontender. Bowel sounds are heard. No organomegaly noted. EXTREMITIES: No evidence of peripheral edema and no calf tenderness noted. Difficult to assess secondary to body habitus. VASCULAR: Radial and dorsalis pedis pulses palpated, no evidence of clubbing. NEUROLOGIC: Patient is awake, alert and oriented x3. ASSESSMENT Chest pain, atypical acute coronary event is ruled out with EKG evidence of ischemia negative cardiac enzymes. Nonischemic cardiomyopathy Chronic systolic heart failure, currently euvolemic Hypertension Dyslipidemia Morbid obesity, BMI 67 PLAN An acute coronary event has been ruled out with no EKG evidence of ischemia negative cardiac enzymes. Records been reviewed from his primary medical file clerk revealing a recent heart catheterization as well as a recent normal stress test. Stable from a cardiac perspective him a follow-up with his primary medical file clerk upon discharge. Thank you kindly for this consultation. Nurse Practitioner note has been reviewed, I agree with a documented findings and plan of care. Patient was seen and examined. Past Medical History Past Medical History: Chest Pain / Angina, Heart Failure, CVA/TIA, GERD/Reflux, Hyperlipidemia, Hypertension, Osteoarthritis (OA) Additional Past Medical History / Comment(s): tubes in ears, cyst on hypothalmus ,x3 concussions(all d/t working with animals. 0 back pain, thyroid nodule-dr watching it." in october 2017 -stroke affected dominant lt side -pt stated has some mild weakness to lt leg/arm History of Any Multi-Drug Resistant Organisms: None Reported Past Surgical History: Adenoidectomy, Hernia Repair, Orthopedic Surgery Additional Past Surgical History / Comment(s): 4 lt ear surgeries, nasal reconstruction Lt side of face, Lt foot surgery broken bone Past Anesthesia/Blood Transfusion Reactions: Previous Problems w/ Anesthesia Additional Past Anesthesia/Blood Transfusion Reaction / Comment(s): delay in coming out of anesthesia Smoking Status: Never smoker - Past Family History Mother Family Medical History: Diabetes Mellitus, Hypertension Additional Family Medical History / Comment(s): one kidney removed Father History Unknown: Yes Medications and Allergies Home Medications Medication Instructions Recorded Confirmed Type Aspirin EC [Ecotrin Low Dose] 81 mg PO DAILY 03/15/18 03/15/18 History Atorvastatin [Lipitor] 40 mg PO HS 03/15/18 03/15/18 History Clopidogrel [Plavix] 75 mg PO DAILY 03/15/18 03/15/18 History Furosemide [Lasix] 20 mg PO BID 03/15/18 03/15/18 History Furosemide [Lasix] 40 mg PO BID 03/15/18 03/15/18 History Lisinopril 40 mg PO DAILY 03/15/18 03/15/18 History Metoprolol Succinate (ER) [Toprol 100 mg PO DAILY 03/15/18 03/15/18 History Xl] Omeprazole 20 mg PO BID 03/15/18 03/15/18 History Potassium Chloride ER [K-Dur 20] 20 meq PO DAILY 03/15/18 03/15/18 History Pregabalin [Lyrica] 75 mg PO DAILY 03/15/18 03/15/18 History Topiramate [Topamax] 100 mg PO HS 03/15/18 03/15/18 History Venlafaxine HCl ER [Effexor Xr] 150 mg PO DAILY 03/15/18 03/15/18 History hydrALAZINE HCL 37.5 mg PO BID 03/15/18 03/15/18 History Allergies Allergy/AdvReac Type Severity Reaction Status Date / Time orange juice Allergy Anaphylaxis Verified 03/15/18 18:20 Physical Exam Vitals: Vital Signs Temp Pulse Pulse Resp BP BP Pulse Ox 03/16/18 12:00 98.3 F 79 18 118/73 94 L 03/16/18 07:35 98.2 F 75 18 131/68 03/16/18 04:00 98.5 F 74 16 147/79 94 L 03/16/18 03:21 20 03/16/18 00:00 98.8 F 81 20 148/73 95 03/15/18 23:07 18 03/15/18 21:37 99.0 F 84 18 167/79 95 03/15/18 21:09 98.9 F 84 20 112/70 95 03/15/18 20:00 85 16 133/78 96 03/15/18 19:31 87 18 123/68 96 03/15/18 18:40 18 97/63 03/15/18 18:30 98 20 111/71 03/15/18 18:20 92 20 138/80 92 L 03/15/18 18:10 91 20 94 L 03/15/18 18:09 90 20 95 03/15/18 17:35 98.3 F 89 22 156/94 97 Intake and Output 03/15/18 03/16/18 03/16/18 22:59 06:59 14:59 Intake Total 123.79 436 Balance 123.79 436 Intake: Intake, IV Titration 123.79 Amount Heparin Sod,Pork in 0.45% 123.79 NaCl 25,000 unit In 0.45 % NaCl 1 500ml.bag @ 4.96 UNITS/KG/HR 20.02 mls/hr IV .Q24H [facility] Rx#: [id number] Oral 236 Other 200 Other: Voiding Method Toilet Toilet # Voids 1 2 Weight 201.849 kg 202.3 kg Results 03/15/18 18:32 03/15/18 18:32 Cardiac Enzymes 03/15/18 03/15/18 03/16/18 Range/Units 18:32 18:32 02:24 AST 24 (17-59) U/L CK-MB (CK-2) 0.4 0.3 (0.0-2.4) ng/mL Troponin I <0.012 <0.012 (0.000-0.034) ng/mL 03/16/18 Range/Units 07:26 AST (17-59) U/L CK-MB (CK-2) 0.3 (0.0-2.4) ng/mL Troponin I <0.012 (0.000-0.034) ng/mL Coagulation 03/15/18 03/16/18 03/16/18 Range/Units 18:32 02:24 07:26 PT 10.2 (9.0-12.0) sec APTT 19.6 L 26.9 30.1 H (22.0-30.0) sec Lipids 03/16/18 Range/Units 07:26 Triglycerides 111 (<150) mg/dL Cholesterol 156 (<200) mg/dL HDL Cholesterol 40 (40-60) mg/dL CBC 03/15/18 Range/Units 18:32 WBC 6.5 (3.8-10.6) k/uL RBC 4.68 (4.30-5.90) m/uL Hgb 13.7 (13.0-17.5) gm/dL Hct 39.9 (39.0-53.0) % Plt Count 227 (150-450) k/uL Comprehensive Metabolic Panel 03/15/18 Range/Units 18:32 Sodium 139 (137-145) mmol/L Potassium 4.4 (3.5-5.1) mmol/L Chloride 107 (98-107) mmol/L Carbon Dioxide 25 (22-30) mmol/L BUN 19 (9-20) mg/dL Creatinine 1.05 (0.66-1.25) mg/dL Glucose 113 H (74-99) mg/dL Calcium 9.3 (8.4-10.2) mg/dL AST 24 (17-59) U/L ALT 37 (21-72) U/L Alkaline Phosphatase 105 (38-126) U/L Total Protein 7.0 (6.3-8.2) g/dL Albumin 3.6 (3.5-5.0) g/dL Current Medications Generic Name Dose Route Start Last Admin Trade Name Freq PRN Reason Stop Dose Admin Hydrocodone Bitart/Acetaminophen 1 each 03/15/18 22:55 03/16/18 08:30 [place] 5-325 PO 1 each Q4HR PRN Administration Pain Aspirin 81 mg 03/16/18 11:00 03/16/18 12:27 Aspirin PO 81 mg DAILY [facility] Administration Atorvastatin Calcium 40 mg 03/15/18 23:00 03/16/18 00:15 Lipitor PO 40 mg HS [facility] Administration Clopidogrel Bisulfate 75 mg 03/16/18 11:00 03/16/18 12:27 Plavix PO 75 mg DAILY [facility] Administration Furosemide 60 mg 03/15/18 23:00 03/16/18 12:27 Lasix PO 60 mg BID [facility] Administration Hydralazine HCl 37.5 mg 03/15/18 23:00 03/16/18 12:27 Apresoline PO 37.5 mg BID [facility] Administration Lisinopril 40 mg 03/16/18 11:00 03/16/18 12:27 Zestril PO 40 mg DAILY [facility] Administration Metoprolol Succinate 100 mg 03/16/18 11:00 03/16/18 12:26 Toprol Xl PO 100 mg DAILY [facility] Administration Nitroglycerin 0.4 mg 03/15/18 19:56 Nitrostat SUBLINGUAL Q5M PRN Chest Pain Pantoprazole Sodium 40 mg 03/15/18 23:00 03/16/18 12:27 Protonix PO 40 mg BID [facility] Administration Potassium Chloride 20 meq 03/16/18 11:00 03/16/18 12:27 K-Dur 20 PO 20 meq DAILY [facility] Administration Pregabalin 75 mg 03/16/18 11:45 03/16/18 12:26 Lyrica PO 75 mg DAILY [facility] Administration Topiramate 100 mg 03/15/18 23:00 03/16/18 00:16 Topamax PO 100 mg HS [facility] Administration Venlafaxine HCl 150 mg 03/16/18 11:45 03/16/18 12:26 Effexor Xr PO 150 mg DAILY [facility] Administration Intake and Output 03/15/18 03/16/18 03/16/18 22:59 06:59 14:59 Intake Total 123.79 436 Balance 123.79 436 Intake: Intake, IV Titration 123.79 Amount Heparin Sod,Pork in 0.45% 123.79 NaCl 25,000 unit In 0.45 % NaCl 1 500ml.bag @ 4.96 UNITS/KG/HR 20.02 mls/hr IV .Q24H [facility] Rx#: [id number] Oral 236 Other 200 Other: Voiding Method Toilet Toilet # Voids 1 2 Weight 201.849 kg 202.3 kg 03/15/18 18:32 03/15/18 18:32
== END 2018-03-16 17:47 | disposition home or self-care (01) ==
LOC: EC 17:31 → 1SOBS 19:56
PROVIDERS: ADMIT Internal Medicine; ATTEND Internal Medicine
DX: R07.89 Other chest pain (principal); R07.2 Precordial pain; R06.02 Shortness of breath; J98.4 Other disorders of lung; E66.01 Morbid (severe) obesity due to excess calories; Z68.44 Body mass index [BMI] 60.0-69.9, adult; K21.9 Gastro-esophageal reflux disease without esophagitis; E78.5 Hyperlipidemia, unspecified; M19.90 Unspecified osteoarthritis, unspecified site; M54.9 Dorsalgia, unspecified; I11.0 Hypertensive heart disease with heart failure; I50.22 Chronic systolic (congestive) heart failure; I87.2 Venous insufficiency (chronic) (peripheral); I42.9 Cardiomyopathy, unspecified; I69.354 Hemiplegia and hemiparesis following cerebral infarction affecting left non-dominant side; F41.9 Anxiety disorder, unspecified; F32.9 Major depressive disorder, single episode, unspecified; Z83.3 Family history of diabetes mellitus; Z82.49 Family history of ischemic heart disease and other diseases of the circulatory system; Z79.82 Long term (current) use of aspirin; Z79.899 Other long term (current) drug therapy; Z79.02 Long term (current) use of antithrombotics/antiplatelets; Z91.018 Allergy to other foods
CPT/HCPCS: 96366 ×3; 96376; 96365; 99291; 36415; 83880; 80061; 80053; 82550 ×2; 82553 ×2; 83735; 84484 ×2; 85025; 85610; 85730 ×2; 71046; G0378 ×2; C8929; J1644 ×2; Q9950; 93306